=== PATIENT | male | born 1985 | race Caucasian/White ===

== ENCOUNTER 2016-07-19 14:30 | Emergency (ER) | payer OTHER ==
[2016-07-19 14:38] VITALS: BP 118/83
== END 2016-07-19 15:22 | disposition home or self-care (01) ==
LOC: ED 14:30
DX: S80.211A Abrasion, right knee, initial encounter (principal); S80.212A Abrasion, left knee, initial encounter; S60.512A Abrasion of left hand, initial encounter; X58.XXXA Exposure to other specified factors, initial encounter; Y93.89 Activity, other specified; Y92.89 Other specified places as the place of occurrence of the external cause; Y99.8 Other external cause status